=== PATIENT | male | born 1935 | race Caucasian/White ===

== ENCOUNTER 2018-02-03 11:21 | Day surgery (SDC) | payer OTHER, MEDICARE ==
[2018-01-30 17:38] LABS: Absolute Lymphocytes (CBC) 1.8 K/uL (0.7-4.9); Absolute Monocytes 0.8 K/uL (0.1-1.3); Absolute Neutrophil 5.8 K/uL (1.8-8.0); Basophils % 0.6 % (0-1.3); Eosinophils % 4.3 % (0-4.4); Hematocrit 36.7 % (39.6-49.0); Lymphocytes % 20.7 % (15.3-44.8); MCH 33.2 pg (27.0-35.0); MCV 100.3 fL (80-100); MPV 8.3 fL (7.6-11.3); Monocytes % 8.8 % (3.3-12.3); RBC Red Blood Cell Count 3.66 M/uL (4.33-5.43)
[2018-01-30 17:52] LABS: BUN Blood Urea Nitrogen 23 mg/dL (7-18); Bicarbonate 30 mmol/L (21-32); Glucose Level 139 mg/dL (74-106); Potassium 3.9 mmol/L (3.5-5.1); Sodium Level 138 mmol/L (136-145)
--- NOTE | 2018-01-30 22:12 | EKG ---
Test Date: 2018-01-30 Test Time: 17:03:12 Lighter Captain: ORLY MEASUREMENT RESULTS: Intervals: Rate: 61 PA: 304 QRSD: 94 QT: 402 QTc: 404 Marcellus: P: 39 PA: 304 QRS: -20 T: -72 INTERPRETIVE STATEMENTS: Sinus rhythm with 1st degree AV block ST & Marked T wave abnormality, consider anterolateral ischemia Abnormal ECG No previous ECG available for comparison Electronically Signed On 01-30-18 22:11:58 CDT by Jorge Suárez
[~2018-02-03 11:21] MED LIST: CLINDAMYCIN INJ 900 MG in NA CHLORIDE 0.9% 50 ML IV SCH
--- OUTSIDE RECORDS SUMMARY | 2018-02-03 11:32 | XMS REPORT | Continuity of Care Document ---
:1935 Author Organization Interface Problems Problem Status Onset Classification Date Comments Source Date Reported . Active [place] FATIGUE Active Condition Medical 015 5 Group Fatigue<sup>17, Active Problem Data Medical 18</sup> 015 8 migrated Group,Misc from [facility] on 03/05/15. PACEMAKER - PERMANENT Active Condition Medical 014 5 Group CAD Active Condition Medical 014 5 Group HYPERTENSION - BENIGN Active Condition Medical ESSENTIAL 014 5 Group Benign Active Problem Data Medical hypertension<sup>5</mills 014 8 migrated Group,Misc p> from [facility] on 12/28/14. Coronary Active Problem Data Medical arteriosclerosis<sup>9 014 8 migrated Group,Misc , 10, 11</sup> from [facility] on 12/28/14. TRIGGER FINGER Active Condition Medical 014 5 Group Acquired trigger Active Problem Data Medical finger<sup>3, 4</sup> 014 8 migrated Group,Misc from [facility] on 12/28/14. SHOULDER IMPINGEMENT Active Condition Medical SYNDROME, RIGHT 014 5 Group Impingement syndrome Active Problem Data Medical of shoulder 014 8 migrated Group,Misc region<sup>27, from [facility] Neuro 28</sup> Centricity on 12/28/14. PEPTIC ULCER DISEASE Active Condition Medical 013 5 Group Peptic ulcer<sup>31, Active Problem Data [facility] 32</sup> 013 8 migrated Group,Misc from [facility] on 12/28/14. NEOPLASM UNSPECIFIED Active Condition Medical NATURE DIGESTIVE 013 5 Group SYSTEM ABDOMINAL PAIN Active Condition Medical 013 5 Group CHEST PAIN Active Condition Medical 013 5 Group Abdominal pain<sup>1, Active Problem Data [facility] 2</sup> 013 8 migrated Group,Misc from [facility] on 12/28/14. Chest pain<sup>7, Active Problem Data Medical 8</sup> 013 8 migrated Group,Misc from [facility] on 12/28/14. HYPERCHOLESTEROLEMIA Active Condition Medical 013 5 Group Hypercholesterolemia<s Active Problem Data Medical up>19, 20</sup> 013 8 migrated Group,Misc from [facility] on 12/28/14. CORONARY Active Condition [facility] ATHEROSCLEROSI 013 5 Group Coronary Active Problem Data [facility] atherosclerosis<sup>12 013 8 migrated Group,Misc </sup> from [facility] on 12/28/14. CARDIAC PACEMAKER IN Active Condition Medical SITU 013 5 Group Cardiac pacemaker in Resolved Problem Data Medical situ<sup>6</sup> 013 8 migrated Group,Misc from [facility] on 02/15/15. NECK PAIN Active Condition Medical 012 5 Group HYPONATREMIA Active Condition Medical 012 5 Group NEED PROPHYLACTIC Active Condition Medical VACCINATION&INOCULATIO 012 5 Group N FLU Hyponatremia<sup>23, Active Problem Data Medical 24</sup> 012 8 migrated Group,Misc from [facility] on 12/28/14. Neck pain<sup>29, Active Problem Data Medical 30</sup> 012 8 migrated Group,Misc from [facility] Cent[facility] on 12/28/14. SINUSITIS Active Condition Medical 012 5 Group Sinusitis<sup>33</sup> Active Problem Data Medical 012 8 migrated Group,Misc from [facility] Cent[facility] on 03/22/15. Pacemaker Resolved Problem Medical 009 8 Group,Misc her Neuro TRIGEMINAL NEURALGIA Active Condition Medical 5 Group UNSPECIFIED ESSENTIAL Active Condition Medical HYPERTENSION 5 Group DIABETES MELLITUS Active Condition Medical 5 Group HYPOTHYROIDISM Active Condition Medical 5 Group SLEEP APNEA Active Condition Medical 5 Group HYPERTENSION Active Condition Medical 5 Group BPH Resolved Problem Medical 8 Group,Misc her Neuro Diabetes Active Problem Data Medical mellitus<sup>13, 8 migrated Group,Misc 14</sup> from [facility] on 12/28/14. Essential Active Problem Data Medical hypertension<sup>15, 8 migrated Group,Misc 16</sup> from [facility] on 12/28/14. Hypertension Resolved Problem Medical 8 Group,Misc her Neuro Hypertensive Active Problem Data Medical disorder<sup>21, 8 migrated Group,Misc 22</sup> from [facility] Cent[facility] on 12/28/14. Hypothyroidism<sup>25, Active Problem Data Medical 26</sup> 8 migrated Group,Misc from [facility] Cent[facility] on 12/28/14. Recurrent sinus Resolved Problem Medical infections 8 Group,Misc her Neuro Sleep apnea<sup>34, Active Problem Data Medical 35</sup> 8 migrated Group,Misc from [facility] on 12/28/14. Trigeminal Active Problem Data Medical neuralgia<sup>36, 37, 8 migrated Group,Misc 38</sup> from her Neuro Centricity on 12/28/14. Trigeminal Neuralgia Resolved Problem Medical 8 Group,[facility] her Neuro ENCNTR FOR CHECKING Active MH AND TEST OF CARD [facility] Medications Medication Details Route Status Patient Ordering Order Source Instructions Provider Date lamotrigine 100 100 mg=1 Active Medical MG Oral Tablet tab, PO, 018 Group TID, 0 Refill(s) baclofen 10 mg 30 mg=3 tab, Active Medical oral tablet PO, TID, 0 018 Group Refill(s) Sodium Chloride 1 tablet, No Longer Medical 1 g oral tablet PO, Daily, 0 Active 018 Group Refill(s) 24 HR 150 mg=3 Active [facility] lamotrigine 50 tab, PO, 018 Neuro MG Extended Daily, # 90 Release Enteric tab, 0 Coated Tablet Refill(s), [Lamictal] Pharmacy: [facility] Flonase 0.05 2 puff, No Longer MH mg/inh nasal Route: Active [facility] spray NASAL, Drug Form: SPRY, Dosing Weight 72.727, kg, Daily, Start date: 09/18/15 9:00:00, Duration: 30 day, Stop date: 10/17/15 9:00:00Notes : (Same as: Flonase) aspirin 81 mg 81 mg, 1 No Longer tablet, tab, Route: Active [facility] chewable CHEW, Drug form: CHEWTAB, Daily, Start date: 09/18/15 9:00:00, Duration: 30 day, Stop date: 10/17/15 9:00:00Notes : Take with food. Aspirin 81 mg, 1 No Longer MH tab, Route: Active [facility] PO, Drug form: CHEWTAB, Daily, Dosing Weight 72.727, kg, Start date: 09/18/15 9:00:00, Duration: 30 day, Stop date: 10/17/15 9:00:00Notes : Take with food. Norvasc 5 mg, 1 tab, No Longer MH Route: PO, Active [facility] Drug form: TAB, Daily, Dosing Weight 72.727, kg, Start date: 09/18/15 9:00:00, Duration: 30 day, Stop date: 10/17/15 9:00:00Notes : (Same as: Norvasc) Zantac 300 300 mg, No Longer Route: PO, Active [facility] Drug form: TAB, Daily, Dosing Weight 72.727, kg, Start date: 09/18/15 9:00:00, Duration: 30 day, Stop date: 10/17/15 9:00:00 Lisinopril 20 mg, 1 No Longer tab, Route: Active [facility] PO, Drug form: TAB, Daily, Dosing Weight 72.727, kg, Start date: 09/18/15 9:00:00, Duration: 30 day, Stop date: 10/17/15 9:00:00Notes : (Same as: Prinivil, Zestril) Thyroxine 88 No Longer microgram, 1 Active [facility] tab, Route: PO, Drug form: TAB, Daily, Dosing Weight 72.727, kg, Start date: 09/18/15 7:30:00, Duration: 30 day, Stop date: 10/17/15 7:30:00Notes : Take 1 hour before or 2 hours after meal; Enteral feeds may interefere with the absorption of this medication. (Same as:Synthroid ) Doxazosin 4 mg, 1 tab, Inactive Route: PO, [facility] Drug form: TAB, Bedtime, Dosing Weight 72.727, kg, Start date: 09/17/15 21:00:00, Duration: 30 day, Stop date: 10/16/15 21:00:00Note s: (Same as: Cardura) Minocycline 100 mg, 1 Inactive cap, Route: [facility] PO, Drug form: CAP, SYCS24Z, Dosing Weight 72.727, kg, Start date: 09/17/15 21:00:00, Duration: 5 day, Stop date: 09/22/15 9:00:00Notes : (Same as:Minocin) No milk/antacid s/iron. Sodium Chloride 250 mL, Inactive 0.9% IV Route: IVPB, [facility] Start date: 09/17/15 17:35:00, Duration: 30 day, Stop date: 10/17/15 18:34:00, PRN Line Flush BD Normal 10 mL, Inactive Saline Flush Route: IVP, [facility] Drug Form: INJ, PRN, PRN Line Flush, Start date: 09/17/15 17:34:00, Duration: 30 day, Stop date: 10/17/15 18:33:00Note s: (Same as: BD Posiflush) Coreg 12.5 mg, 1 Inactive tab, Route: [facility] PO, Drug form: TAB, BID, Dosing Weight 72.727, kg, Start date: 09/17/15 17:00:00, Duration: 30 day, Stop date: 10/17/15 9:00:00Notes : Give with food. (Same As: Coreg) pantoprazole 40 mg, 1 Inactive tab, Route: [facility] PO, Drug form: ECTAB, BID, Dosing Weight 72.727, kg, Start date: 09/17/15 17:00:00, Duration: 30 day, Stop date: 10/17/15 9:00:00Notes : Tablet should not be chewed or crushed. (Same as: Protonix) Trileptal 1,200 mg, 2 Inactive tab, Route: [facility] PO, Drug form: TAB, BID, Dosing Weight 72.727, kg, Start date: 09/17/15 17:00:00, Duration: 30 day, Stop date: 10/17/15 9:00:00Notes : (Same as: Trileptal) Clonidine 0.2 mg, Inactive Hydrochloride Route: PO, [facility] 0.2 MG Oral ONCE, Dosing Tablet Weight 72.727, kg, Priority: STAT, Start date: 09/17/15 14:38:00, Stop date: 09/17/15 14:38:00 gabapentin 400 1,200 mg, 3 Inactive MG Oral Capsule cap, Route: [facility] PO, Drug form: CAP, TID, Dosing Weight 72.727, kg, Start date: 09/17/15 13:00:00, Duration: 30 day, Stop date: 10/17/15 9:00:00Notes : (Same as: Neurontin) Baclofen 30 mg, 3 Inactive tab, Route: PO, Drug form: TAB, TID, Dosing Weight 72.727, kg, Start date: 09/17/15 13:00:00, Duration: 30 day, Stop date: 10/17/15 9:00:00Notes : (Same As: Lioresal) minocycline 100 100 mg, PO, Active mg oral capsule Q12H, X 5 , # 10 caplet, 0 Refill(s) Ondansetron 4 mg, 2 mL, Inactive Route: IVP, [facility] Drug form: INJ, Q8H, Dosing Weight 72.727, kg, PRN Nausea & Vomiting, Start date: 09/17/15 12:12:00, Duration: 30 day, Stop date: 10/17/15 12:11:00Note s: (Same as: Zofran) MEDICATION WASTE Product Size: 4 mg Product Wasted: _0__ mg Acetaminophen 650 mg, 2 Inactive tab, Route: PO, Drug form: TAB, Q4H, Dosing Weight 72.727, kg, PRN Pain Score 1-5, Start date: 09/17/15 12:12:00, Duration: 30 day, Stop date: 10/17/15 12:11:00Note s: Do not exceed 4 gm/day. (Same as: Tylenol) acetaminophen-c 1 tab, Inactive odeine #3 Route: PO, Drug Form: TAB, Dosing Weight 72.727, kg, Q4H, PRN Pain Score 4-6, Start date: 09/17/15 12:12:00, Duration: 30 day, Stop date: 10/17/15 12:11:00Note s: Do not exceed 4gm/day of acetaminophe n. (Same as: Tylenol with Codeine # 3) vancomycin + 1 gm, Route: Inactive Sodium Chloride IVPB, ONCE, [facility] [place] 0.9% IV 250 mL Start date: 09/17/15 9:15:00, Stop date: 09/17/15 9:15:00Notes : TIME CRITICAL MEDICATION (Same As: Vancocin) Infusion rate 2001 mg: infuse over 2.5 hours MEDICATION WASTE Product Size: 1000 mg Product Wasted: ___ mg Sodium Chloride 1,000 mL, Inactive 0.9% IV 1,000 Rate: 100 [facility] [place] mL ml/hr, Infuse over: 10 hr, Route: IV, Dosing Weight 71.08 kg, Total Volume: 1,000, Start date: 09/17/15 9:14:00, Duration: 30 day, Stop date: 10/17/15 9:13:00 HYDROCODONE-JASON 1 tablet Active Medical TAMINOPHEN every 4-6 015 Group 10-325 MG TABS hours as needed. ASPIRIN EC LOW 1 tablet Active Medical DOSE 81 MG TBEC daily 015 Group ROBITUSSIN 1 tsp q 4 No Longer Medical CHEST hrs prn Active 014 Group CONGESTION SYRP cough/conges tion DOXAZOSIN one p.o. Active Medical MESYLATE 4 MG q.h.s. 014 Group TABS DOXAZOSIN one p.o. Active Medical MESYLATE 4 MG q.h.s. 014 Group TABS DOXAZOSIN one p.o. Active Medical MESYLATE 4 MG q.h.s. 014 Group TABS DOXAZOSIN one p.o. Active Medical MESYLATE 4 MG q.h.s. 014 Group TABS DOXAZOSIN one p.o. Active Medical MESYLATE 4 MG q.h.s. 014 Group TABS PANTOPRAZOLE TAKE 2 PO Active Medical SODIUM 40 MG BID 013 Group TBEC TRILEPTAL 600 2 tabs bid Active Medical MG TABS 013 Group GABAPENTIN 400 3 tablets po Active Medical MG CAPS three times 013 Group a day BACLOFEN 10 MG 2 tablets Active Medical TABS three times 013 Group a day PANTOPRAZOLE TAKE 2 PO Active Medical SODIUM 40 MG BID 013 Group TBEC BACLOFEN 10 MG 2 tablets Active Medical TABS three times 013 Group a day BACLOFEN 10 MG 2 tablets Active Medical TABS three times 013 Group a day GABAPENTIN 400 3 tablets po Active MH Medical MG CAPS three times 013 Group a day BACLOFEN 10 MG 3 tablets Active Medical TABS three times 013 Group a day PANTOPRAZOLE TAKE 2 PO Active Medical SODIUM 40 MG BID 013 Group TBEC BACLOFEN 10 MG 2 tablets Active Medical TABS three times 013 Group a day MELOXICAM 15 MG TAKE ONE Active Medical TABS TABLET BY 013 Group MOUTH EVERY DAY WITH FOOD prn MELOXICAM 15 MG TAKE ONE Active Medical TABS TABLET BY 013 Group MOUTH EVERY DAY WITH FOOD prn MELOXICAM 15 MG TAKE ONE Active Medical TABS TABLET BY 013 Group MOUTH EVERY DAY WITH FOOD prn MELOXICAM 15 MG TAKE ONE No Longer Medical TABS TABLET BY Active 013 Group MOUTH EVERY DAY WITH FOOD prn MELOXICAM 15 MG TAKE ONE Active Medical TABS TABLET BY 013 Group MOUTH EVERY DAY WITH FOOD prn MELOXICAM 15 MG TAKE ONE No Longer Medical TABS TABLET BY Active 013 Group MOUTH EVERY DAY WITH FOOD prn PRAVACHOL 80 MG take one by No Longer Medical TABS mouth daily Active 013 Group PRAVACHOL 80 MG take one by No Longer Medical TABS mouth daily Active 013 Group ZANTAC 300 MG one p.o. q. Active Medical TABS day 013 Group LISINOPRIL 20 one po qd Active Medical MG TABS 013 Group COREG 25 MG 1/2 tablet Active Medical TABS twice a day 013 Group PLAVIX 75 MG one p.o. q. Active Medical TABS day 013 Group COREG 25 MG one p.o. Active Medical TABS b.i.d. 013 Group LISINOPRIL 20 one po qd Active Medical MG TABS 013 Group LISINOPRIL 20 one po qd Active Medical MG TABS 013 Group PLAVIX 75 MG one p.o. q. No Longer Medical TABS day Active 013 Group LISINOPRIL 20 one po qd Active Medical MG TABS 013 Group COREG 25 MG one p.o. Active Medical TABS b.i.d. 013 Group ATORVASTATIN ONE PO QHS No Longer Medical CALCIUM 40 MG Active 013 Group TABS ATORVASTATIN ONE PO QHS No Longer Medical CALCIUM 40 MG Active 013 Group TABS ATORVASTATIN ONE PO QHS No Longer Medical CALCIUM 40 MG Active 013 Group TABS RANEXA 500 MG take one by No Longer Medical [id number] mouth twice Active 013 Group a day AMLODIPINE No Longer Medical BESYLATE 5 MG Active 013 Group TABS NEURONTIN 800 No Longer Medical MG TABS Active 013 Group ASPIRIN EC 325 No Longer Medical MG TBEC Active 013 Group GLUCOPHAGE 500 No Longer Medical MG TABS Active 013 Group AMLODIPINE No Longer Medical BESYLATE 5 MG Active 013 Group TABS ASPIRIN EC 325 No Longer Medical MG TBEC Active 013 Group GLUCOPHAGE 500 No Longer Medical MG TABS Active 013 Group AMLODIPINE No Longer Medical BESYLATE 5 MG Active 013 Group TABS AMLODIPINE No Longer Medical BESYLATE 5 MG Active 013 Group TABS ASPIRIN EC 325 No Longer Medical MG TBEC Active 013 Group GLUCOPHAGE 500 No Longer Medical MG TABS Active 013 Group AMLODIPINE No Longer Medical BESYLATE 5 MG Active 013 Group TABS ROBAXIN-750 750 1-2 every Active Medical MG TABS 6-8 hours 013 Group p.r.n. muscle spasm(usuall y one at night) FLONASE 50 2 sprays in Active Medical MCG/ACT SUSP each nostril 013 Group every morning RESTASIS 0.05 % one drop in No Longer Medical EMUL each eye Active 013 Group twice a day RESTASIS 0.05 % one drop in No Longer Medical EMUL each eye Active 013 Group twice a day FLONASE 50 2 sprays in Active Medical MCG/ACT SUSP each nostril 013 Group every morning FLONASE 50 2 sprays in Active Medical MCG/ACT SUSP each nostril 013 Group every morning RESTASIS 0.05 % one drop in No Longer Medical EMUL each eye Active 013 Group twice a day RESTASIS 0.05 % one drop in No Longer Medical EMUL each eye Active 013 Group twice a day METFORMIN HCL 1 qday No Longer Medical 500 MG TABS Active 012 Group METFORMIN HCL 1 qday No Longer Medical 500 MG TABS Active 012 Group METFORMIN HCL 1 qday No Longer Medical 500 MG TABS Active 012 Group METFORMIN HCL 1 qday No Longer Medical 500 MG TABS Active 012 Group BACTRIM DS one p.o. No Longer Medical 800-160 MG TABS b.i.d. with Active 012 Group food BACTRIM DS one p.o. No Longer Medical 800-160 MG TABS b.i.d. with Active 012 Group food LEVOTHYROXINE 1 qday Active Medical SODIUM 88 MCG Group TABS NORVASC 5 MG 1 po qd Active Medical TABS Group ASPIRIN 325 MG 1 qd No Longer Medical TABS Active Group LEVOTHYROXINE 1 qday Active Medical SODIUM 88 MCG Group TABS ASPIRIN 325 MG 1 qd Active Medical TABS Group NORVASC 5 MG 1 po qd Active Medical TABS Group NORVASC 5 MG 1 po qd Active Medical TABS Group ASPIRIN 325 MG 1 qd No Longer Medical TABS Active Group Allergies, Adverse Reactions, Alerts Substance Category Reaction Severity Reaction Status Date Comments Source type Reported ZETIA Drug ZETIA allergy 3 Medical Group ELAVIL Drug ELAVIL allergy 3 Medical Group penicillins Assertion Swelling Drug Active Data MH <sup>1, allergy 3 migrated Medical 2</sup> from [facility]ric[facility] on 02/27/15. Originally documented as PENICILLIN . swelling penicillins Assertion Drug Active Data MH <sup>5, allergy 3 migrated [place] 6</sup> from [facility] t [facility] on 02/27/15. Originally documented as PENICILLIN . swelling PENICILLIN Drug PENICILLIN allergy Medical Group LIPITOR Drug LIPITOR allergy Medical Group amitriptyli Assertion C/O Drug Active Data [facility] ne<sup>3</s nightmares allergy migrated Neuro up> (context-de from [facility] pendent Centricity category) on 11/28/14. Originally documented as ELAVIL. Nightmares atorvastati Assertion Drug Active Data [facility] n<sup>4, allergy migrated Neuro 5</sup> from [facility] on 11/28/14. Originally documented as LIPITOR. ezetimibe<s Assertion Drug Active Data [facility] up>6</sup> allergy migrated Neuro from [facility] on 11/28/14. Originally documented as ZETIA. amitriptyli Assertion Drug Active Data ne<sup>1</s allergy migrated [place] up> from [facility] t [facility] on 11/28/14. Originally documented as ELAVIL. Nightmares atorvastati Assertion Drug Active Data n<sup>2, allergy migrated [place] 3</sup> from [facility] t [facility]ity on 11/28/14. Originally documented as LIPITOR. ezetimibe<s Assertion Drug Active Data MH up>4</sup> allergy migrated [place] from [facility] t [facility]ity on 11/28/14. Originally documented as ZETIA. Immunizations Immunization Date Site Status Last Comments Source Given Updated influenza completed Medical immunization (Flu 3 Group Vax) has been administered Hx influenza completed [facility] Result Comment: Medical vaccine-unspecifi 3 done. Migrated Group,Misch ed<sup>1</sup> from OBS ; er Neuro Data migrated from [facility] on 09/02/2015. influenza virus completed [facility] Result Comment: Medical vaccine, 3 fluzone Group,Misch inactivated<sup>2 preservative er Neuro </sup> free (>3 yrs.) [[id number]]. Migrated from [facility] ; Data migrated from [employer] on 09/02/2015. influenza completed Medical immunization (Flu 2 Group Vax) has been administered Results Order Name Results Value Reference Date Interpretation Comments Source Range Chest 2 Chest 2 CHEST PA AND LATERAL 09/09 - [facility] views DX /2015 - [place] History: 80-year-old with essential hypertension Read by: Satinder Cowan MD Dictated Date/time: 09/09/15 16:56 Electronically Signed by: Satinder Cowan 09/09/15 16:57 FINAL REPORT Comparison: 10/22/2008. Findings: Left dual-lead cardiac pacing device is stable. The lungs are expanded and no infiltrate, mass or pleural effusion seen. Cardiomediastinal structures are within normal limits. 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 IMPRESSION: There is no active cardio pulmonary abnormality. Chemistry HGBA1C 5.5 % 11/08 Medical Group Chemistry HGBA1C 5.5 % 06/13 Medical Group Chemistry FOLATE >24.0 ng/mL 06/09 ng/mL Medical Group Chemistry PSA 3.34 ng/mL 05/15 Medical Group Chemistry PSA 3.34 ng/mL 05/15 Medical Group Chemistry HGBA1C 5.9 % 05/09 Medical [facility] Chemistry HEMOCCULT Normal 06/02 Medical Group [employer] HEMOCCULT Normal 06/02 Medical Group Vital Signs Vital Sign Value Date Comments Source Height 170.18 cm 01/24/2018 Medical Group BMI Calculated 25.27 01/24/2018 Medical Group Weight 73.182 01/24/2018 Medical Group Temperature Oral (F) 98.0 F 01/24/2018 Medical Group Heart Rate 73 01/24/2018 Medical Group Systolic (mm Hg) 110 01/24/2018 Medical Group Diastolic (mm Hg) 65 01/24/2018 Medical Group Heart Rate 62 10/06/2017 Medical Group Weight 74.773 10/06/2017 Medical Group Systolic (mm Hg) 170 10/06/2017 Medical Group Diastolic (mm Hg) 78 10/06/2017 Medical Group Height 165.1 cm 10/03/2017 [facility] BMI Calculated 27.44 10/03/2017 [facility] Weight 74.801 10/03/2017 [facility] Systolic (mm Hg) 182 10/03/2017 [facility] Diastolic (mm Hg) 82 10/03/2017 [facility] Heart Rate 67 10/03/2017 [facility] Weight 72.727 09/17/2015 [facility] Height 170.18 cm 09/17/2015 [facility] BMI Calculated 25.11 09/17/2015 [facility] Weight 160 03/11/2015 Medical Group Temperature Oral (F) 97.5 F 03/11/2015 [facility] Group Systolic (mm Hg) 146 03/11/2015 [facility] Group Diastolic (mm Hg) 69 03/11/2015 Medical Group Heart Rate 64 03/11/2015 Medical Group Weight 156 02/18/2015 Medical Group Systolic (mm Hg) 175 02/18/2015 Medical Group Diastolic (mm Hg) 73 02/18/2015 Medical Group Heart Rate 60 02/18/2015 Medical Group Temperature Oral (F) 97.7 F 02/18/2015 Medical Group Height 67 02/13/2015 Medical Group Weight 158.6 02/13/2015 Medical Group Heart Rate 67 02/13/2015 [facility] Systolic (mm Hg) 156 02/13/2015 [facility] Diastolic (mm Hg) 67 02/13/2015 Medical Group Weight 173 09/17/2014 Medical Group Respitory Rate 18 09/17/2014 Medical Group Heart Rate 64 09/17/2014 [facility] Systolic (mm Hg) 148 09/17/2014 [facility] Diastolic (mm Hg) 78 09/17/2014 Medical Group Temperature Oral (F) 98.4 F 09/17/2014 Medical Group Temperature Oral (F) 98.2 F 03/19/2014 Medical Group Respitory Rate 18 03/19/2014 [facility] Weight 166 03/19/2014 Medical Group Heart Rate 60 03/19/2014 [facility] Systolic (mm Hg) 120 03/19/2014 [facility] Diastolic (mm Hg) 68 03/19/2014 Medical Group Weight 174 01/28/2014 [facility] Weight 174 12/28/2013 Medical Group Weight 174 10/26/2013 Medical Group Systolic (mm Hg) 126 09/17/2013 [facility] Diastolic (mm Hg) 62 09/17/2013 [facility] Weight 174.6 09/17/2013 [facility] Heart Rate 64 09/17/2013 [facility] Weight 172 08/13/2013 Medical Group Heart Rate 72 08/13/2013 [facility] Systolic (mm Hg) 128 08/13/2013 [facility] Diastolic (mm Hg) 72 08/13/2013 [facility] Weight 1716 06/21/2013 [facility] Temperature Oral (F) 98 F 06/21/2013 [facility] Heart Rate 72 06/21/2013 [facility] Systolic (mm Hg) 124 06/21/2013 [facility] Diastolic (mm Hg) 70 06/21/2013 [facility] Weight 172 06/12/2013 [facility] Respitory Rate 20 06/12/2013 Medical Group Heart Rate 80 06/12/2013 [facility] Systolic (mm Hg) 140 06/12/2013 [facility] Diastolic (mm Hg) 72 06/12/2013 [facility] Weight 175 03/14/2013 [facility] Systolic (mm Hg) 134 03/14/2013 [facility] Diastolic (mm Hg) 54 03/14/2013 Medical Group Heart Rate 60 03/14/2013 [facility] Weight 179 02/13/2013 [facility] Systolic (mm Hg) 130 02/13/2013 [facility] Diastolic (mm Hg) 76 02/13/2013 Medical Group Heart Rate 60 02/13/2013 Medical Group Weight 168.4 02/07/2013 Medical Group Heart Rate 66 02/07/2013 [facility] Systolic (mm Hg) 153 02/07/2013 [facility] Diastolic (mm Hg) 69 02/07/2013 Medical Group Weight 175.8 01/09/2013 Medical Group Systolic (mm Hg) 154 01/09/2013 Medical Group Diastolic (mm Hg) 80 01/09/2013 Medical Group Heart Rate 60 01/09/2013 Medical Group Weight 175.8 12/21/2012 Medical Group Temperature Oral (F) 98.7 F 12/21/2012 Medical Group Heart Rate 68 12/21/2012 Medical Group Systolic (mm Hg) 140 12/21/2012 Medical Group Diastolic (mm Hg) 66 12/21/2012 Medical Group Weight 177 12/12/2012 Medical Group Heart Rate 60 12/12/2012 Medical Group Systolic (mm Hg) 137 12/12/2012 Medical Group Diastolic (mm Hg) 68 12/12/2012 Medical Group Weight 173 11/08/2012 Medical Group Heart Rate 62 11/08/2012 Medical Group Systolic (mm Hg) 143 11/08/2012 Medical Group Diastolic (mm Hg) 63 11/08/2012 Medical Group Weight 170.8 10/03/2012 Medical Group Systolic (mm Hg) 140 10/03/2012 Medical Group Diastolic (mm Hg) 74 10/03/2012 Medical Group Heart Rate 68 10/03/2012 Medical Group Weight 170 08/15/2012 Medical Group Systolic (mm Hg) 180 08/15/2012 Medical Group Diastolic (mm Hg) 80 08/15/2012 Medical Group Heart Rate 64 08/15/2012 Medical Group Weight 162 06/13/2012 Medical Group Height 67 06/13/2012 Medical Group Systolic (mm Hg) 177 06/13/2012 Medical Group Diastolic (mm Hg) 76 06/13/2012 Medical Group Heart Rate 75 06/13/2012 Medical Group Temperature Oral (F) 97.7 F 05/15/2012 Medical Group Weight 163 05/15/2012 Medical Group Heart Rate 77 05/15/2012 Medical Group Systolic (mm Hg) 124 05/15/2012 Medical Group Diastolic (mm Hg) 63 05/15/2012 Medical Group Weight 164 05/09/2012 Medical Group Heart Rate 66 05/09/2012 Medical Group Systolic (mm Hg) 128 05/09/2012 Medical Group Diastolic (mm Hg) 65 05/09/2012 Medical Group Temperature Oral (F) 97.5 F 05/09/2012 Medical Group Encounters Location Location Encounter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
--- OUTSIDE RECORDS SUMMARY | 2018-02-03 11:32 | XMS REPORT | Continuity of Care Document ---
:1935 Author Organization [facility] Care Team Providers Name Role Phone MD Tali, Kevon Unavailable Unavailable Insurance Providers Payer name Policy type / Policy ID Covered alliance party ID Policy Mack Coverage type AARP COB SECONDARY AARP COB SECONDARY MCR MEDICARE PRIMARY MEDIC[place]: [employer] AARP HEALTHCARE OPTIONS (MEDICARE SUPPLEMENT [place]IC[place]: [employer] AARP HEALTHCARE OPTIONS (MEDICARE SUPPLEMENT MEDIC[place]: [employer] Encounters Encounter Performer Location Date Office Visit Kevon Cesar MD [facility] December 28, 2013 Orthopedics Allergies, Adverse Reactions, Alerts Type Substance Reaction Status Drug allergy PENICILLIN swelling Active Drug allergy ZETIA Inactive Drug allergy ELAVIL Inactive Drug allergy ZETIA Active Drug allergy ELAVIL Nightmares Active Drug allergy LIPITOR Active Problems Problem Effective Dates Problem Status TRIGEMINAL NEURALGIA Active UNSPECIFIED ESSENTIAL HYPERTENSION Active DIABETES MELLITUS Active SINUSITIS May 09, 2012 Active NECK PAIN Jun 13, 2012 Active HYPONATREMIA Jun 13, 2012 Active NEED PROPHYLACTIC VACCINATION&INOCULATION FLU Jun 13, 2012 Active HYPOTHYROIDISM Active SLEEP APNEA Active HYPERTENSION Active CARDIAC PACEMAKER IN SITU Aug 15, 2012 Active CORONARY ATHEROSCLEROSI Sep 24, 2012 Active HYPERCHOLESTEROLEMIA Jan 09, 2013 Active ABDOMINAL PAIN Feb 07, 2013 Active CHEST PAIN Feb 07, 2013 Active 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, 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 PEPTIC ULCER DISEASE Jun 12, 2013 Active SHOULDER IMPINGEMENT SYNDROME, RIGHT Oct 26, 2013 Active TRIGGER FINGER December 28, 2013 Active Procedures Date Description Comments May 09, 2012 smoking status former smoker May 15, 2012 diabetic foot check yes Oct 03, 2012 smoking status former smoker Jan 09, 2013 smoking status former smoker Feb 13, 2013 smoking status former smoker Jun 10, 2008 colonoscopy Done Sep 17, 2013 smoking status former smoker Medications Medication Instructions Start Date Status LEVOTHYROXINE SODIUM 88 MCG TABS 1 qday Active ASPIRIN 325 MG TABS 1 qd Active NORVASC 5 MG TABS 1 po qd Active METFORMIN HCL 500 MG TABS 1 qday Inactive BACTRIM DS 800-160 MG TABS one p.o. b.i.d. with food May 09, 2012 Inactive BACTRIM DS 800-160 MG TABS one p.o. b.i.d. with food May 09, 2012 Inactive BACTRIM DS 800-160 MG TABS one p.o. b.i.d. with food May 09, 2012 Inactive ROBAXIN-750 750 MG TABS 1-2 every 6-8 hours p.r.n. Aug 01, 2012 Active muscle spasm(usually one at night) AMLODIPINE BESYLATE 5 MG TABS Inactive NEURONTIN 800 MG TABS Inactive ASPIRIN EC 325 MG TBEC Inactive GLUCOPHAGE 500 MG TABS Inactive FLONASE 50 MCG/ACT SUSP 2 sprays in each nostril every Aug 01, 2012 Active morning RANEXA 500 MG [id number] take one by mouth twice a day Sep 24, 2012 Inactive ATORVASTATIN CALCIUM 40 MG TABS ONE PO QHS Oct 03, 2012 Inactive LISINOPRIL 20 MG TABS one po qd Nov 08, 2012 Active COREG 25 MG TABS one p.o. b.i.d. Nov 08, 2012 Active PLAVIX 75 MG TABS one p.o. q. day Nov 08, 2012 Active ZANTAC 300 MG TABS one p.o. q. day Feb 07, 2013 Active MELOXICAM 15 MG TABS TAKE ONE TABLET BY MOUTH EVERY Jun 12, 2013 Active DAY WITH FOOD prn PRAVACHOL 80 MG TABS take one by mouth daily Feb 13, 2013 Inactive PANTOPRAZOLE SODIUM 40 MG TBEC TAKE 2 PO BID Jun 21, 2013 Active TRILEPTAL 600 MG TABS 2 tabs bid Jun 21, 2013 Active GABAPENTIN 400 MG CAPS 3 tablets po three times a day Jun 21, 2013 Active BACLOFEN 10 MG TABS 2 tablets three times a day Jun 21, 2013 Active DOXAZOSIN MESYLATE 4 MG TABS one p.o. q.h.s. 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 Immunizations Vaccine Date Status influenza immunization (Flu Vax) has been administered Jun 13, 2012 completed influenza immunization (Flu Vax) has been administered Jun 12, 2013 completed Vital Signs Date Description Test Result May 09, 2012 weight E&M - 3141-9 WEIGHT 164 lb May 09, 2012 pulse rate E&M - 8867-4 PULSE RATE 66 /min May 09, 2012 blood pressure, systolic - 8480-6 BP SYSTOLIC 128 mm Hg May 09, 2012 blood pressure, diastolic - 8462-4 BP DIASTOLIC 65 mm Hg May 09, 2012 temperature E&M TEMPERATURE 97.5 deg f May 15, 2012 temperature E&M TEMPERATURE 97.7 deg f May 15, 2012 weight E&M - 3141-9 WEIGHT 163 lb May 15, 2012 pulse rate E&M - 8867-4 PULSE RATE 77 /min May 15, 2012 blood pressure, systolic - 8480-6 BP SYSTOLIC 124 mm Hg May 15, 2012 blood pressure, diastolic - 8462-4 BP DIASTOLIC 63 mm Hg Jun 13, 2012 weight E&M - 3141-9 WEIGHT 162 lb Jun 13, 2012 height E&M - 8302-2 HEIGHT 67 in Jun 13, 2012 blood pressure, systolic - 8480-6 BP SYSTOLIC 177 mm Hg Jun 13, 2012 blood pressure, diastolic - 8462-4 BP DIASTOLIC 76 mm Hg Jun 13, 2012 pulse rate E&M - 8867-4 PULSE RATE 75 /min Aug 15, 2012 weight E&M - 3141-9 WEIGHT 170 lb Aug 15, 2012 blood pressure, systolic, sitting, right arm BP SYS SIT R 180 null Aug 15, 2012 blood pressure, diastolic, sitting, right arm BP WILLY SIT R 80 mmHg Aug 15, 2012 blood pressure, systolic, sitting, left arm BP SYS SIT L 170 mm Hg Aug 15, 2012 blood pressure, diastolic, sitting, left arm BP WILLY SIT L 80 mm Hg Aug 15, 2012 pulse rate E&M - 8867-4 PULSE RATE 64 /min Aug 15, 2012 blood pressure, systolic - 8480-6 BP SYSTOLIC 180 mm Hg Aug 15, 2012 blood pressure, diastolic - 8462-4 BP DIASTOLIC 80 mm Hg Oct 03, 2012 weight E&M - 3141-9 WEIGHT 170.8 lb Oct 03, 2012 blood pressure, systolic, sitting, right arm BP SYS SIT R 140 null Oct 03, 2012 blood pressure, diastolic, sitting, right arm BP WILLY SIT R 74 mmHg Oct 03, 2012 blood pressure, systolic, sitting, left arm BP SYS SIT L 140 mm Hg Oct 03, 2012 blood pressure, diastolic, sitting, left arm BP WILLY SIT L 82 mm Hg Oct 03, 2012 pulse rate, sitting, right PULSE SIT R 68 /min Oct 03, 2012 blood pressure, systolic - 8480-6 BP SYSTOLIC 140 mm Hg Oct 03, 2012 pulse rate E&M - 8867-4 PULSE RATE 68 /min Oct 03, 2012 blood pressure, diastolic - 8462-4 BP DIASTOLIC 74 mm Hg Nov 08, 2012 weight E&M - 3141-9 WEIGHT 173 lb Nov 08, 2012 pulse rate E&M - 8867-4 PULSE RATE 62 /min Nov 08, 2012 blood pressure, systolic - 8480-6 BP SYSTOLIC 143 mm Hg Nov 08, 2012 blood pressure, diastolic - 8462-4 BP DIASTOLIC 63 mm Hg December 12, 2012 weight E&M - 3141-9 WEIGHT 177 lb December 12, 2012 pulse rate E&M - 8867-4 PULSE RATE 60 /min December 12, 2012 blood pressure, systolic - 8480-6 BP SYSTOLIC 137 mm Hg December 12, 2012 blood pressure, diastolic - 8462-4 BP DIASTOLIC 68 mm Hg December 21, 2012 weight E&M - 3141-9 WEIGHT 175.8 lb December 21, 2012 temperature E&M TEMPERATURE 98.7 deg f December 21, 2012 pulse rate E&M - 8867-4 PULSE RATE 68 /min December 21, 2012 blood pressure, systolic - 8480-6 BP SYSTOLIC 140 mm Hg December 21, 2012 blood pressure, diastolic - 8462-4 BP DIASTOLIC 66 mm Hg Jan 09, 2013 weight E&M - 3141-9 WEIGHT 175.8 lb Jan 09, 2013 blood pressure, systolic, sitting, right arm BP SYS SIT R 154 null Jan 09, 2013 blood pressure, diastolic, sitting, right arm BP WILLY SIT R 80 mmHg Jan 09, 2013 blood pressure, systolic, sitting, left arm BP SYS SIT L 150 mm Hg Jan 09, 2013 blood pressure, diastolic, sitting, left arm BP WILLY SIT L 80 mm Hg Jan 09, 2013 pulse rate, sitting, left PULSE SIT L 60 /min Jan 09, 2013 blood pressure, systolic - 8480-6 BP SYSTOLIC 154 mm Hg Jan 09, 2013 pulse rate E&M - 8867-4 PULSE RATE 60 /min Jan 09, 2013 blood pressure, diastolic - 8462-4 BP DIASTOLIC 80 mm Hg Feb 07, 2013 weight E&M - 3141-9 WEIGHT 168.4 lb Feb 07, 2013 pulse rate E&M - 8867-4 PULSE RATE 66 /min Feb 07, 2013 blood pressure, systolic - 8480-6 BP SYSTOLIC 153 mm Hg Feb 07, 2013 blood pressure, diastolic - 8462-4 BP DIASTOLIC 69 mm Hg Feb 13, 2013 weight E&M - 3141-9 WEIGHT 179 lb Feb 13, 2013 blood pressure, systolic, sitting, right arm BP SYS SIT R 130 null Feb 13, 2013 blood pressure, diastolic, sitting, right arm BP WILLY SIT R 76 mmHg Feb 13, 2013 pulse rate, sitting, right PULSE SIT R 60 /min Feb 13, 2013 blood pressure, systolic - 8480-6 BP SYSTOLIC 130 mm Hg Feb 13, 2013 pulse rate E&M - 8867-4 PULSE RATE 60 /min Feb 13, 2013 blood pressure, diastolic - 8462-4 BP DIASTOLIC 76 mm Hg Mar 14, 2013 weight E&M - 3141-9 WEIGHT 175 lb Mar 14, 2013 blood pressure, systolic - 8480-6 BP SYSTOLIC 134 mm Hg Mar 14, 2013 blood pressure, diastolic - 8462-4 BP DIASTOLIC 54 mm Hg Mar 14, 2013 pulse rate, standing PULSE STAND 60 /min Mar 14, 2013 pulse rate E&M - 8867-4 PULSE RATE 60 /min Jun 12, 2013 weight E&M - 3141-9 WEIGHT 172 lb Jun 12, 2013 respiratory rate E&M - 9279-1 RESP RATE 20 /min Jun 12, 2013 pulse rate E&M - 8867-4 PULSE RATE 80 /min Jun 12, 2013 blood pressure, systolic - 8480-6 BP SYSTOLIC 140 mm Hg Jun 12, 2013 blood pressure, diastolic - 8462-4 BP DIASTOLIC 72 mm Hg Jun 21, 2013 weight E&M - 3141-9 WEIGHT 1716 lb Jun 21, 2013 temperature E&M TEMPERATURE 98 deg f Jun 21, 2013 pulse rate E&M - 8867-4 PULSE RATE 72 /min Jun 21, 2013 blood pressure, systolic - 8480-6 BP SYSTOLIC 124 mm Hg Jun 21, 2013 blood pressure, diastolic - 8462-4 BP DIASTOLIC 70 mm Hg Aug 13, 2013 weight E&M - 3141-9 WEIGHT 172 lb Aug 13, 2013 pulse rate E&M - 8867-4 PULSE RATE 72 /min Aug 13, 2013 blood pressure, systolic - 8480-6 BP SYSTOLIC 128 mm Hg Aug 13, 2013 blood pressure, diastolic - 8462-4 BP DIASTOLIC 72 mm Hg Sep 17, 2013 blood pressure, systolic, sitting, right arm BP SYS SIT R 126 null Sep 17, 2013 blood pressure, diastolic, sitting, right arm BP WILLY SIT R 62 mmHg Sep 17, 2013 weight E&M - 3141-9 WEIGHT 174.6 lb Sep 17, 2013 blood pressure, systolic, sitting, left arm BP SYS SIT L 126 mm Hg Sep 17, 2013 blood pressure, diastolic, sitting, left arm BP WILLY SIT L 60 mm Hg Sep 17, 2013 pulse rate, sitting, left PULSE SIT L 64 /min Sep 17, 2013 blood pressure, systolic - 8480-6 BP SYSTOLIC 126 mm Hg Sep 17, 2013 pulse rate E&M - 8867-4 PULSE RATE 64 /min Sep 17, 2013 blood pressure, diastolic - 8462-4 BP DIASTOLIC 62 mm Hg Oct 26, 2013 weight E&M - 3141-9 WEIGHT 174 lb December 28, 2013 weight E&M - 3141-9 WEIGHT 174 lb Results Date Description Test Name Value Reference Interpretation Status May 09, 2012 hemoglobin A1C, HGBA1C 5.9 % blood, as % of total hemoglobin Jun 09, 2012 folate, serum FOLATE >24.0 ng/mL Normal ng/mL Jun 13, 2012 hemoglobin A1C, HGBA1C 5.5 % blood, as % of total hemoglobin Nov 08, 2012 hemoglobin A1C, HGBA1C 5.5 % blood, as % of total hemoglobin Jun 02, 2010 occult blood, HEMOCCULT Normal null stool (E&M) May 15, 2012 prostate specific PSA 3.34 ng/mL antigen
--- OUTSIDE RECORDS SUMMARY | 2018-02-03 11:33 | XMS REPORT | Continuity of Care Document ---
:1935 Author Organization [facility] Care Team Providers Name Role Phone MD Tali, Kevon Unavailable Unavailable Insurance Providers Payer name Policy type / Policy ID Covered libertarian ID Policy Mack Coverage type AARP COB SECONDARY AARP COB SECONDARY MCR MEDICARE PRIMARY MEDIC[place]: [id number] AARP HEALTHCARE OPTIONS (MEDICARE SUPPLEMENT MEDICARE [place]: [employer] AARP HEALTHCARE OPTIONS (MEDICARE SUPPLEMENT MEDICARE [place]: [employer] AARP HEALTHCARE OPTIONS (MEDICARE SUPPLEMENT Encounters Encounter Performer Location Date Office Visit Kevon Cesar MD [facility] Medical [place] Mar 11, 2015 Cardiology Allergies, Adverse Reactions, Alerts Type Substance Reaction Status Drug allergy PENICILLIN swelling Active Drug allergy ZETIA Inactive Drug allergy ELAVIL Inactive Drug allergy ELAVIL Nightmares Active Drug allergy LIPITOR stopped due to kidneys function levels. Active Drug allergy ZETIA Inactive Problems Problem Effective Dates Problem Status TRIGEMINAL [...] Active TRIGGER FINGER December 28, 2013 Active PACEMAKER - PERMANENT Mar 19, 2014 Active CAD Mar 19, 2014 Active HYPERTENSION - BENIGN ESSENTIAL Mar 19, 2014 Active FATIGUE Feb 18, 2015 Active Procedures Date Description Comments May 09, 2012 smoking status former smoker May 15, 2012 diabetic foot check yes Oct 03, 2012 smoking status former smoker Jan 09, 2013 smoking status former smoker Feb 13, 2013 smoking status former smoker Jun 10, 2008 colonoscopy Done Sep 17, 2013 smoking status former smoker Mar 19, 2014 smoking status Former smoker Sep 17, 2014 smoking status Former smoker Feb 18, 2015 smoking status Former smoker Mar 11, 2015 smoking status Former smoker Medications Medication Instructions Start Date Status LEVOTHYROXINE SODIUM 88 MCG TABS 1 qday Active NORVASC 5 MG TABS 1 po [...] 01, 2012 Active morning RANEXA 500 MG [id number] take one by mouth twice a day Sep 24, 2012 Inactive ATORVASTATIN CALCIUM 40 MG TABS ONE PO QHS Oct 03, 2012 Inactive LISINOPRIL 20 MG TABS one po qd Nov 08, 2012 Active ZANTAC 300 MG TABS one p.o. q. day Feb 07, 2013 Active PRAVACHOL 80 MG TABS take one by [...] twice a Aug 01, 2012 Inactive day ASPIRIN 325 MG TABS 1 qd Inactive MELOXICAM 15 MG TABS TAKE ONE TABLET BY MOUTH EVERY Jun 12, 2013 Inactive DAY WITH FOOD prn PLAVIX 75 MG TABS one p.o. q. day Nov 08, 2012 Inactive ROBITUSSIN CHEST CONGESTION SYRP 1 tsp q 4 hrs prn Mar 15, 2014 Inactive cough/congestion BACLOFEN 10 MG TABS 3 tablets three times a day Jun 21, 2013 Active COREG 25 MG TABS 1/2 tablet twice a day Nov 08, 2012 Active HYDROCODONE-ACETAMINOPHEN 10-325 1 tablet every 4-6 hours as Feb 18, 2015 Active MG TABS needed. 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 Immunizations Vaccine Date [...] weight E&M - 3141-9 WEIGHT 174 lb Jan 28, 2014 weight E&M - 3141-9 WEIGHT 174 lb Mar 19, 2014 temperature E&M TEMPERATURE 98.2 deg f Mar 19, 2014 respiratory rate E&M - 9279-1 RESP RATE 18 /min Mar 19, 2014 weight E&M - 3141-9 WEIGHT 166 lb Mar 19, 2014 pulse rate, sitting, left PULSE SIT L 60 /min Mar 19, 2014 blood pressure, systolic, sitting, left arm BP SYS SIT L 120 mm Hg Mar 19, 2014 blood pressure, diastolic, sitting, left arm BP WILLY SIT L 68 mm Hg Mar 19, 2014 blood pressure, systolic - 8480-6 BP SYSTOLIC 120 mm Hg Mar 19, 2014 pulse rate E&M - 8867-4 PULSE RATE 60 /min Mar 19, 2014 blood pressure, diastolic - 8462-4 BP DIASTOLIC 68 mm Hg Sep 17, 2014 weight E&M - 3141-9 WEIGHT 173 lb Sep 17, 2014 respiratory rate E&M - 9279-1 RESP RATE 18 /min Sep 17, 2014 pulse rate, sitting, right PULSE SIT R 64 /min Sep 17, 2014 blood pressure, systolic, sitting, right arm BP SYS SIT R 148 null Sep 17, 2014 blood pressure, diastolic, sitting, right arm BP WILLY SIT R 78 mmHg Sep 17, 2014 blood pressure, systolic, sitting, left arm BP SYS SIT L 140 mm Hg Sep 17, 2014 blood pressure, diastolic, sitting, left arm BP WILLY SIT L 70 mm Hg Sep 17, 2014 temperature E&M TEMPERATURE 98.4 deg f Sep 17, 2014 blood pressure, systolic - 8480-6 BP SYSTOLIC 148 mm Hg Sep 17, 2014 pulse rate E&M - 8867-4 PULSE RATE 64 /min Sep 17, 2014 blood pressure, diastolic - 8462-4 BP DIASTOLIC 78 mm Hg Feb 13, 2015 height E&M - 8302-2 HEIGHT 67 in Feb 13, 2015 weight E&M - 3141-9 WEIGHT 158.6 lb Feb 13, 2015 pulse rate E&M - 8867-4 PULSE RATE 67 /min Feb 13, 2015 blood pressure, systolic - 8480-6 BP SYSTOLIC 156 mm Hg Feb 13, 2015 blood pressure, diastolic - 8462-4 BP DIASTOLIC 67 mm Hg Feb 18, 2015 weight E&M - 3141-9 WEIGHT 156 lb Feb 18, 2015 blood pressure, systolic, sitting, right arm BP SYS SIT R 175 null Feb 18, 2015 blood pressure, diastolic, sitting, right arm BP WILLY SIT R 73 mmHg Feb 18, 2015 pulse rate, sitting, right PULSE SIT R 60 /min Feb 18, 2015 temperature E&M TEMPERATURE 97.7 deg f Feb 18, 2015 blood pressure, systolic, sitting, left arm BP SYS SIT L 166 mm Hg Feb 18, 2015 blood pressure, diastolic, sitting, left arm BP WILLY SIT L 70 mm Hg Feb 18, 2015 blood pressure, systolic - 8480-6 BP SYSTOLIC 175 mm Hg Feb 18, 2015 pulse rate E&M - 8867-4 PULSE RATE 60 /min Feb 18, 2015 blood pressure, diastolic - 8462-4 BP DIASTOLIC 73 mm Hg Mar 11, 2015 weight E&M - 3141-9 WEIGHT 160 lb Mar 11, 2015 temperature E&M TEMPERATURE 97.5 deg f Mar 11, 2015 blood pressure, systolic, sitting, right arm BP SYS SIT R 146 null Mar 11, 2015 blood pressure, diastolic, sitting, right arm BP WILLY SIT R 69 mmHg Mar 11, 2015 pulse rate, sitting, right PULSE SIT R 64 /min Mar 11, 2015 blood pressure, systolic, sitting, left arm BP SYS SIT L 142 mm Hg Mar 11, 2015 blood pressure, diastolic, sitting, left arm BP WILLY SIT L 80 mm Hg Mar 11, 2015 blood pressure, systolic - 8480-6 BP SYSTOLIC 146 mm Hg Mar 11, 2015 pulse rate E&M - 8867-4 PULSE RATE 64 /min Mar 11, 2015 blood pressure, diastolic - 8462-4 BP DIASTOLIC 69 mm Hg Results Date Description Test Name Value Reference [...]
--- OUTSIDE RECORDS SUMMARY | 2018-02-03 11:33 | XMS REPORT | Continuity of Care Document ---
:1935 Author Organization [facility] Care Team Providers Name Role Phone MD Tali, Kevon Unavailable Unavailable Insurance Providers Payer name Policy type / Policy ID Covered green party ID Policy Mack Coverage type AARP COB SECONDARY AARP COB SECONDARY MCR MEDICARE PRIMARY MEDIC[place]: [employer] AARP HEALTHCARE OPTIONS (MEDICARE SUPPLEMENT MEDICARE [place]: [employer] AARP HEALTHCARE OPTIONS (MEDICARE SUPPLEMENT MEDICARE [place]: [employer] Encounters Encounter Performer Location Date Office Visit Kevon Cesar MD [facility] [place] Sep 17, 2014 Cardiology Allergies, Adverse Reactions, Alerts Type Substance [...] - BENIGN ESSENTIAL Mar 19, 2014 Active Procedures Date Description Comments May 09, [...] Sep 17, 2014 smoking status Former smoker Medications Medication Instructions [...] 01, 2012 Active morning RANEXA 500 MG [id number] take one by mouth twice a day [...] twice a Aug 01, 2012 Inactive day ROBITUSSIN CHEST CONGESTION SYRP 1 tsp q 4 hrs prn Mar 15, 2014 Active cough/congestion ASPIRIN 325 MG TABS 1 qd Inactive Advance Directives Directive Description 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
--- OUTSIDE RECORDS SUMMARY | 2018-02-03 11:33 | XMS REPORT | Continuity of Care Document ---
:1935 Author Organization [facility] Care Team Providers Name Role Phone MD Tali, Kevon Unavailable Unavailable Insurance Providers Payer name Policy type / Policy ID Covered constitution party ID Policy Mack Coverage type AARP COB SECONDARY AARP COB SECONDARY MCR MEDICARE PRIMARY MEDIC[place]: [employer] AARP HEALTHCARE OPTIONS (MEDICARE SUPPLEMENT MEDICARE [place]: [employer] AARP HEALTHCARE OPTIONS (MEDICARE SUPPLEMENT MEDICARE [place]: [employer] Encounters Encounter Performer Location Date Office Visit Kevon Cesar MD [facility] Medical [place] Mar 19, 2014 Cardiology Allergies, Adverse Reactions, Alerts Type [...] Mar 19, 2014 smoking status Former smoker Medications Medication [...] 01, 2012 Active morning RANEXA 500 MG [id number] take one by mouth twice a day [...] hrs prn Mar 15, 2014 Active cough/congestion Advance Directives Directive Description Insurance Policy Issue Clerk Status 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 REFUSAL Immunizations Vaccine Date Status influenza immunization (Flu Vax) has been administered Jun 13, 2012 completed influenza immunization (Flu Vax) has been administered Jun 12, 2013 completed Vital Signs Date Description Test Result May 09, 2012 weight E&M WEIGHT 164 lb May 09, 2012 pulse rate E&M PULSE RATE 66 /min May 09, 2012 blood pressure, systolic BP SYSTOLIC 128 mm Hg May 09, 2012 blood pressure, diastolic BP DIASTOLIC 65 mm Hg May 09, 2012 temperature E&M TEMPERATURE 97.5 deg f May 15, 2012 temperature E&M TEMPERATURE 97.7 deg f May 15, 2012 weight E&M WEIGHT 163 lb May 15, 2012 pulse rate E&M PULSE RATE 77 /min May 15, 2012 blood pressure, systolic BP SYSTOLIC 124 mm Hg May 15, 2012 blood pressure, diastolic BP DIASTOLIC 63 mm Hg Jun 13, 2012 weight E&M WEIGHT 162 lb Jun 13, 2012 height E&M HEIGHT 67 in Jun 13, 2012 blood pressure, systolic BP SYSTOLIC 177 mm Hg Jun 13, 2012 blood pressure, diastolic BP DIASTOLIC 76 mm Hg Jun 13, 2012 pulse rate E&M PULSE RATE 75 /min Aug 15, 2012 weight E&M WEIGHT 170 lb Aug 15, 2012 blood [...] Hg Aug 15, 2012 pulse rate E&M PULSE RATE 64 /min Aug 15, 2012 blood pressure, systolic BP SYSTOLIC 180 mm Hg Aug 15, 2012 blood pressure, diastolic BP DIASTOLIC 80 mm Hg Oct 03, 2012 weight E&M WEIGHT 170.8 lb Oct 03, 2012 blood [...] /min Oct 03, 2012 blood pressure, systolic BP SYSTOLIC 140 mm Hg Oct 03, 2012 pulse rate E&M PULSE RATE 68 /min Oct 03, 2012 blood pressure, diastolic BP DIASTOLIC 74 mm Hg Nov 08, 2012 weight E&M WEIGHT 173 lb Nov 08, 2012 pulse rate E&M PULSE RATE 62 /min Nov 08, 2012 blood pressure, systolic BP SYSTOLIC 143 mm Hg Nov 08, 2012 blood pressure, diastolic BP DIASTOLIC 63 mm Hg December 12, 2012 weight E&M WEIGHT 177 lb December 12, 2012 pulse rate E&M PULSE RATE 60 /min December 12, 2012 blood pressure, systolic BP SYSTOLIC 137 mm Hg December 12, 2012 blood pressure, diastolic BP DIASTOLIC 68 mm Hg December 21, 2012 weight E&M WEIGHT 175.8 lb December 21, 2012 temperature E&M TEMPERATURE 98.7 deg f December 21, 2012 pulse rate E&M PULSE RATE 68 /min December 21, 2012 blood pressure, systolic BP SYSTOLIC 140 mm Hg December 21, 2012 blood pressure, diastolic BP DIASTOLIC 66 mm Hg Jan 09, 2013 weight E&M WEIGHT 175.8 lb Jan 09, 2013 blood [...] /min Jan 09, 2013 blood pressure, systolic BP SYSTOLIC 154 mm Hg Jan 09, 2013 pulse rate E&M PULSE RATE 60 /min Jan 09, 2013 blood pressure, diastolic BP DIASTOLIC 80 mm Hg Feb 07, 2013 weight E&M WEIGHT 168.4 lb Feb 07, 2013 pulse rate E&M PULSE RATE 66 /min Feb 07, 2013 blood pressure, systolic BP SYSTOLIC 153 mm Hg Feb 07, 2013 blood pressure, diastolic BP DIASTOLIC 69 mm Hg Feb 13, 2013 weight E&M WEIGHT 179 lb Feb 13, 2013 blood pressure, systolic, sitting, right arm BP SYS SIT R 130 null Feb 13, 2013 blood pressure, diastolic, sitting, right arm BP WILLY SIT R 76 mmHg Feb 13, 2013 pulse rate, sitting, right PULSE SIT R 60 /min Feb 13, 2013 blood pressure, systolic BP SYSTOLIC 130 mm Hg Feb 13, 2013 pulse rate E&M PULSE RATE 60 /min Feb 13, 2013 blood pressure, diastolic BP DIASTOLIC 76 mm Hg Mar 14, 2013 weight E&M WEIGHT 175 lb Mar 14, 2013 blood pressure, systolic BP SYSTOLIC 134 mm Hg Mar 14, 2013 blood pressure, diastolic BP DIASTOLIC 54 mm Hg Mar 14, 2013 pulse rate, standing PULSE STAND 60 /min Mar 14, 2013 pulse rate E&M PULSE RATE 60 /min Jun 12, 2013 weight E&M WEIGHT 172 lb Jun 12, 2013 respiratory rate E&M RESP RATE 20 /min Jun 12, 2013 pulse rate E&M PULSE RATE 80 /min Jun 12, 2013 blood pressure, systolic BP SYSTOLIC 140 mm Hg Jun 12, 2013 blood pressure, diastolic BP DIASTOLIC 72 mm Hg Jun 21, 2013 weight E&M WEIGHT 1716 lb Jun 21, 2013 temperature E&M TEMPERATURE 98 deg f Jun 21, 2013 pulse rate E&M PULSE RATE 72 /min Jun 21, 2013 blood pressure, systolic BP SYSTOLIC 124 mm Hg Jun 21, 2013 blood pressure, diastolic BP DIASTOLIC 70 mm Hg Aug 13, 2013 weight E&M WEIGHT 172 lb Aug 13, 2013 pulse rate E&M PULSE RATE 72 /min Aug 13, 2013 blood pressure, systolic BP SYSTOLIC 128 mm Hg Aug 13, 2013 blood pressure, diastolic BP DIASTOLIC 72 mm Hg Sep 17, 2013 blood pressure, systolic, sitting, right arm BP SYS SIT R 126 null Sep 17, 2013 blood pressure, diastolic, sitting, right arm BP WILLY SIT R 62 mmHg Sep 17, 2013 weight E&M WEIGHT 174.6 lb Sep 17, 2013 blood pressure, systolic, sitting, left arm BP SYS SIT L 126 mm Hg Sep 17, 2013 blood pressure, diastolic, sitting, left arm BP WILLY SIT L 60 mm Hg Sep 17, 2013 pulse rate, sitting, left PULSE SIT L 64 /min Sep 17, 2013 blood pressure, systolic BP SYSTOLIC 126 mm Hg Sep 17, 2013 pulse rate E&M PULSE RATE 64 /min Sep 17, 2013 blood pressure, diastolic BP DIASTOLIC 62 mm Hg Oct 26, 2013 weight E&M WEIGHT 174 lb December 28, 2013 weight E&M WEIGHT 174 lb Jan 28, 2014 weight E&M WEIGHT 174 lb Mar 19, 2014 temperature E&M TEMPERATURE 98.2 deg f Mar 19, 2014 respiratory rate E&M RESP RATE 18 /min Mar 19, 2014 weight E&M WEIGHT 166 lb Mar 19, 2014 pulse rate, sitting, left PULSE SIT L 60 /min Mar 19, 2014 blood pressure, systolic, sitting, left arm BP SYS SIT L 120 mm Hg Mar 19, 2014 blood pressure, diastolic, sitting, left arm BP WILLY SIT L 68 mm Hg Mar 19, 2014 blood pressure, systolic BP SYSTOLIC 120 mm Hg Mar 19, 2014 pulse rate E&M PULSE RATE 60 /min Mar 19, 2014 blood pressure, diastolic BP DIASTOLIC 68 mm Hg Results Date Description Test Name Value Reference Interpretation Status May 09, 2012 hemoglobin A1C, HGBA1C 5.9 % blood, as % of total hemoglobin Jun 09, 2012 folate, serum FOLATE >24.0 ng/mL Normal ng/mL Jun 13, 2012 hemoglobin A1C, HGBA1C 5.5 % blood, as % of total hemoglobin Nov 08, 2012 hemoglobin A1C, HGBA1C 5.5 % blood, as % of total hemoglobin May 15, 2012 prostate specific PSA 3.34 ng/mL antigen Jun 02, 2010 occult blood, HEMOCCULT Normal null stool (E&M)
--- OUTSIDE RECORDS SUMMARY | 2018-02-03 11:33 | XMS REPORT | Continuity of Care Document ---
:1935 Author Organization [facility] Care Team Providers Name Role Phone MD Tali, Kevon Unavailable Unavailable Insurance Providers Payer name Policy type / Policy ID Covered constitution party ID Policy Mack Coverage type AARP COB SECONDARY AARP COB SECONDARY MCR MEDICARE PRIMARY MEDICARE [place]: [employer] AARP HEALTHCARE OPTIONS (MEDICARE SUPPLEMENT MEDICARE [place]: [employer] AARP HEALTHCARE OPTIONS (MEDICARE SUPPLEMENT MEDICARE [place]: [employer] Encounters Encounter Performer Location Date Office Visit Kevon Cesar MD [facility] [place] Jan 28, 2014 Orthopedics Allergies, Adverse Reactions, Alerts Type Substance [...] 01, 2012 Active morning RANEXA 500 MG [id number] take one by mouth twice a day [...] 2012 Inactive day Advance Directives Directive Description 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
--- OUTSIDE RECORDS SUMMARY | 2018-02-03 11:33 | XMS REPORT | Continuity of Care Document ---
:1935 Author Organization [facility] Care Team Providers Name Role Phone MD Tali, Kevon Unavailable Unavailable Insurance Providers Payer name Policy type / Policy ID Covered green party ID Policy Mack Coverage type AARP COB SECONDARY AARP COB SECONDARY MCR MEDICARE PRIMARY MEDICARE [place]: [employer] AARP HEALTHCARE OPTIONS (MEDICARE SUPPLEMENT MEDICARE B-[place]: [email or web address] AARP HEALTHCARE OPTIONS (MEDICARE SUPPLEMENT MEDICARE B-[place]: [employer] AARP HEALTHCARE OPTIONS (MEDICARE SUPPLEMENT Encounters Encounter Performer Location Date Office Visit Kevon Cesar MD [facility] Medical [place] Feb 18, 2015 Cardiology Allergies, Adverse Reactions, Alerts Type [...] Feb 18, 2015 smoking status Former smoker Medications Medication [...] 01, 2012 Active morning RANEXA 500 MG [id number] take one by mouth twice a day [...] 18, 2015 Active Advance Directives Directive Description Keymodule Assembly 

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
[2018-02-03] MEDS ORDERED: [UNRECOGNIZED DRUG - OTHER] IV ONE (11:54)
[2018-02-03] MEDS ORDERED: Ringers Lactate 1,000 ML IV ONE ×2 (11:54→15:01)
[2018-02-03] MEDS ORDERED: CLINDAMYCIN IV ONE (11:54)
[2018-02-03] MEDS ORDERED: PROPOFOL 200 MG/20 ML VIAL IV ONE (13:14)
[2018-02-03] MEDS ORDERED: LIDOCAINE 2% MPF 5 ML VIAL ONE (13:15)
[2018-02-03] MEDS ORDERED: FENTANYL CITR 250 MCG/5 ML ONE (13:15)
[2018-02-03] MEDS ORDERED: ONDANSETRON HCL 40 MG/20 ML VIAL ONE (13:16)
--- NOTE | 2018-02-03 14:58 | P.BOP ---
Preoperative diagnosis: right patella fracture of diatal pole (comminuted) Postoperative diagnosis: same Primary procedure: right partial patellectomy with repair of extensor mechanism Estimated blood loss: 20 ccs Anesthesia: General Complications: None Transferred to: Recovery Room Condition: Good
[2018-02-03] MEDS ORDERED: HYDRALAZINE HCL 20 MG/ML VIAL ONE (15:02)
[2018-02-03] MEDS: MORPHINE 4 MG/ML SYR ONE ×2 (15:20→15:26)
[2018-02-03] MEDS ORDERED: MEPERIDINE HCL 25 MG/0.5 ML ONE (15:37)
--- NOTE | 2018-02-03 16:07 | OP ---
Date of Procedure: 02/03/2018 Surgeon: Nando Dubon MD Preoperative Diagnosis: Right comminuted distal pole patellar fracture with loss of extensor mechani sm function. Postoperative Diagnosis: Right comminuted distal pole patellar fracture with loss of extensor mechan ism function. Procedure: Right knee partial patellectomy with reestablishment of extensor mechanism. Estimated Blood Loss: 10 cc. Complications: There were no complications. Indications For Operation: Mr. Barroso is an 82-year-old male who unfortunately fell injuring his rig ht lower extremity. He had abrasions when he saw me in my office and could not perform a straight le g raise because of pain and also his weakness, exhibiting extensive lag and inability to maintain jose driceps extension. All risks, benefits, and alternatives to partial patellectomy with reestablishmen t of extensor mechanisms were discussed with the patient. I also discussed open reduction and general internist al fixation. However, it was felt that the distal pole is quite small and comminuted. He says that he understands everything as presented and wishes to proceed. Description Of Procedure: The patient was taken to the operating room and placed in supine position. General anesthesia was obtained by staff. Following this, a well-padded tourniquet was placed on s uperior right thigh. Right lower extremity was then prepped and draped in usual sterile fashion for the procedure. The knee was then elevated with a downward force placed on the patella, and the tourn iquet was raised. A standard anterior incision was then taken down carefully through skin and soft t issues. Meticulous hemostasis being maintained using Bovie electrocautery. This leads to the fractu re site. The fracture site was covered over with soft tissue. It was obviously not healing signific antly and the distal pole was then examined, it was found to be multi-fragmentary and irregular. The soft tissues between the fracture fragments and the proximal pole patellar were then removed. The d istal pole was then gently excised, care being taken to maintain as much patellar tendon as possible. The patellar tendon was then delineated and 2 #5 FiberWires were then placed in a baseball-type fas hion with 4 strands exiting superiorly. This followed by placement of 3 drill holes from the distal portion of the patella through the superior aspect. The 4 FiberWire strands were then passed in a fa shion to obtain good bone tunnels. They were then tied with the knee in extension, bringing the hughes lla down. This appeared to close down the gap very well. There was some excessive tissue, which was gently debrided along either aspect. Following this, 0 Vicryl was then used to over sew the repair. Following this, the wound was irrigated and 2-0 Vicryl sutures used to close the skin followed by s taples. The patient was then placed in a very well-padded sterile dressing as well as an Grant wrap. A flap of Ortho-Glass was then placed posteriorly and a knee immobilizer was affixed. Following this , the patient was then awakened and taken to recovery room in good condition. There were no complica tions. FRANKIE Voice ID: [id number] Report ID: [id number]
[2018-02-03] MEDS ORDERED: ONDANSETRON 4 MG/2 ML VIAL ONE (16:34)
[2018-02-03] MEDS ORDERED: METOCLOPRAMIDE 10 MG/2mL INJ ONE (16:53)
[2018-02-03] MEDS ORDERED: HYDROCODONE/APAP 5/325 MG TAB ONE (18:11)
== END 2018-02-03 18:50 | disposition home or self-care (01) ==
LOC: OR 11:21
PROVIDERS: ATTEND Orthopaedic Surgery
PROC: 0QBD0ZZ Excision of Right Patella, Open Approach (ICD-10-PCS; principal; 2018-02-03 13:00)
DX: S82.041A Displaced comminuted fracture of right patella, initial encounter for closed fracture (principal); I10 Essential (primary) hypertension; I25.10 Atherosclerotic heart disease of native coronary artery without angina pectoris; G47.33 Obstructive sleep apnea (adult) (pediatric); Z95.0 Presence of cardiac pacemaker; Z88.0 Allergy status to penicillin
CPT/HCPCS: 27350; 36415; 80048; 85025; 93005; J0360; J2175; J2405 ×2; J2765